=== PATIENT | male | born 1945 | race Caucasian/White ===

== ENCOUNTER 2021-09-04 12:51 | Emergency (ER) | payer OTHER ==
[2021-09-04] MEDS ORDERED: Sodium Chloride 0.9% 10 ML Syringe FLUSH PRN (13:29)
[2021-09-04] MEDS ORDERED: Sodium Chloride 0.9% 500 ML IV ONE (13:30)
== END 2021-09-04 15:06 | disposition home or self-care (01) ==
LOC: JP.ED 12:51
DX: S00.83XA Contusion of other part of head, initial encounter (principal); E86.0 Dehydration; Z88.8 Allergy status to other drugs, medicaments and biological substances; Z79.899 Other long term (current) drug therapy; W17.89XA Other fall from one level to another, initial encounter
CPT/HCPCS: 36415; 70450; 80048; 85025; 85651; 93005; 99284; J7040; 93010